=== PATIENT | female | born 1960 | race Caucasian/White ===

== ENCOUNTER 2018-08-27 13:32 | Emergency (ER) | payer SELFPAY ==
[2018-08-27 13:45] VITALS: BP 175/90
--- NOTE | 2018-08-27 13:55 | UC ---
Hand/Wrist HPI - HPI Summary HPI Summary: aug 21, pt fell and stubbed her left 3rd/4th fingers into the casing on her wall. she is c/o ongoing pain in those fingers plus swelling to the 4th finger. she removed 3 of 4 rings from 4th finger but the wedding band is to tight to remove. she denies any numbness/tingling to her fingers. I asked pt about her triage BP. She had a well home visit today and it was in the 140's. she notes it will fluctuate between 140's-180's. She is going to f/u with her pcp in [facility] to adress the BP. - History Of Current Complaint Chief Complaint: UCUpperExtremity Stated Complaint: SP FALL/LT HAND INJURY Time Seen by Provider: 08/27/18 13:39 Hx Obtained From: Patient Onset/Duration: Sudden Onset Pain Intensity: 7 Aggravating Factor(s): Movement Alleviating Factor(s): Nothing Associated Signs And Symptoms: Positive: Swelling. Negative: Weakness, Numbness /Tingling - Allergies/Home Medications Allergies/Adverse Reactions: Allergies Allergy/AdvReac Type Severity Reaction Status Date / Time celecoxib [From Celebrex] Allergy Nausea Verified 08/27/18 13:51 latex Allergy See Comment Verified 08/27/18 13:51 rofecoxib [From Vioxx] Allergy Nausea Verified 08/27/18 13:51 Sulfa (Sulfonamide Allergy See Comment Verified 08/27/18 13:51 Antibiotics) PMH/Surg Hx/FS Hx/Imm Hx Psychological History: Anxiety, Depression - Surgical History Surgical History: Yes Surgery Procedure, Year, and Place: Perforated Left ear. Right Knee Tumor/ Osteomyelitis. carpal tunnel. tubal ligation - Family History Known Family History: Positive: Cardiac Disease - father, Hypertension, Diabetes - Social History Lives: With Family Alcohol Use: None Substance Use Type: None Smoking Status (MU): Heavy Every Day Tobacco Smoker Type: Cigarettes Amount Used/How Often: 1/2 PPD- 1 pack daily Length of Time of Smoking/Using Tobacco: 39 Years Have You Smoked in the Last Year: Yes Household Exposure Type: Cigarettes - Immunization History Most Recent Influenza Vaccination: none Vaccination Up to Date: Yes Review of Systems Constitutional: Negative Skin: Negative Eyes: Negative ENT: Negative Respiratory: Negative Cardiovascular: Negative Gastrointestinal: Negative Genitourinary: Negative Motor: Negative Neurovascular: Negative Musculoskeletal: Negative Neurological: Negative Psychological: Negative Is Patient Immunocompromised?: No All Other Systems Reviewed And Are Negative: Yes Physical Exam Triage Information Reviewed: Yes Appearance: Well-Appearing Vital Signs: Initial Vital Signs Temp 97.7 F 08/27/18 13:39 Pulse 87 08/27/18 13:39 Resp 16 08/27/18 13:39 BP 175/90 08/27/18 13:39 Pulse Ox 98 08/27/18 13:39 Vital Signs Reviewed: Yes Eyes: Positive: Conjunctiva Clear ENT: Positive: Normal ENT inspection Neck: Positive: Supple, Nontender Respiratory: Positive: Lungs clear, Normal breath sounds Cardiovascular: Positive: RRR, No Murmur Abdomen Description: Positive: Nontender, No Organomegaly, Soft Bowel Sounds: Positive: Present Musculoskeletal: Positive: Other: - LUE=swelling L 4th finger plus tender over the PIP joint. tender over middle 3rd phalanx. rest of hand is non tender. digits have full s/v/m function. Diagnostics - Radiology No standard instances Radiology Interpretation Completed By: Radiologist - L hand. Negative for fracture or malalignment. Minimal osteoarthritic change at the metacarpal phalangeal and interphalangeal joints. Small accessory ossicle or unfused chronic fracture fragment at the ulnar styloid. Mild soft tissue swelling at the second through fourth fingers. Hand/Wrist Course/Dx - Course Course Of Treatment: significant swelling to the L 4th finger thus removal by ring cutter d/w pt. pt states will not come off any other way thus agrees to removal by cutting to avoid circulatory issue given degree of swelling. - Differential Dx/Diagnosis Differential Diagnosis/HQI/PQRI: Fracture, Sprain, Strain Provider Diagnoses: Sprain L 3rd/4th fingers Discharge - Sign-Out/Discharge Documenting (check all that apply): Patient Departure All imaging exams completed and their final reports reviewed: Yes - Discharge Plan Condition: Stable Disposition: HOME Patient Education Materials: Hypertension (ED), Jammed Finger (ED) Referrals: Jesenia Dumont PA [Primary Care Provider] - As Soon As Possible Additional Instructions: splint for comfort BP at discharge 163/75 - Billing Disposition and Condition Condition: STABLE Disposition: Home
--- NOTE | 2018-08-27 14:33 | RAD ---
INDICATION: LEFT third and fourth finger pain post fall. COMPARISON: No relevant prior exams available on the [facility] PACS for comparison. TECHNIQUE: AP, lateral, and oblique views LEFT hand. REPORT AND IMPRESSION: #. Negative for fracture or malalignment. Minimal osteoarthritic change at the metacarpal phalangeal and interphalangeal joints. Small accessory ossicle or unfused chronic fracture fragment at the ulnar styloid. Mild soft tissue swelling at the second through fourth fingers.
== END 2018-08-27 15:00 | disposition home or self-care (01) ==
LOC: UCCORT 13:32
DX: S63.613A Unspecified sprain of left middle finger, initial encounter (principal); S63.615A Unspecified sprain of left ring finger, initial encounter; F17.210 Nicotine dependence, cigarettes, uncomplicated; Z88.1 Allergy status to other antibiotic agents; Z88.8 Allergy status to other drugs, medicaments and biological substances; Z88.2 Allergy status to sulfonamides; Z91.040 Latex allergy status; W22.01XA Walked into wall, initial encounter; Y92.9 Unspecified place or not applicable
CPT/HCPCS: 99211; G0463